=== PATIENT | male | born 1960 | race American Indian/Alaskan Native ===

== ENCOUNTER 2021-06-13 10:33 | Outpatient (CLI) | payer OTHER ==
--- NOTE | 2021-06-13 13:10 | XRay Report ---
LUMBOSACRAL SPINE 3 VIEWS INDICATION: BACK PAIN. COMPARISON: None. IMPRESSION: Normal alignment. 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 L5-S1 is the most affected disc joint. L4-5 is the most affected facet joints. No ac [place] osseous or soft tissue abnormality. THORACIC SPINE 3 VIEWS INDICATION: BACK PAIN. COMPARISON: None. IMPRESSION: Normal alignment. 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 No acute osseous or so ft tissue abnormality. CERVICAL SPINE 3 VIEWS INDICATION: BACK PAIN. COMPARISON: None. IMPRESSION: Normal alignment. 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 The facet joints are un remarkable. No acute osseous or soft tissue abnormality. LEFT SHOULDER 3 VIEWS INDICATION: Left shoulder pain. COMPARISON: None. IMPRESSION: No acute osseous or soft tissue abnormality. Mild osteoarthritic changes are identifi ed. RIGHT FOOT 2 VIEWS INDICATION: Right foot pain. COMPARISON: None. IMPRESSION: No acute osseous or soft tissue abnormality. A mild hallux valgus deformity is identi fied. Previous surgical changes involving the distal first metatarsal is identified probably represen ting previous bunionectomy. There is a moderate to large plantar spur. No significant degenerative ch anges are identified. Signer Name: Edi Cota Jr, MD Signed: 06/13/2021 1:05 PM Workstation Name: [id number]
--- NOTE | 2021-06-13 13:10 | XRay Report ---
LUMBOSACRAL SPINE 3 VIEWS INDICATION: BACK PAIN. COMPARISON: None. IMPRESSION: Normal alignment. 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 L5-S1 is the most affected disc joint. L4-5 is the most affected facet joints. No ac [place] osseous or soft tissue abnormality. THORACIC SPINE 3 VIEWS INDICATION: BACK PAIN. COMPARISON: None. IMPRESSION: Normal alignment. 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 No acute osseous or so ft tissue abnormality. CERVICAL SPINE 3 VIEWS INDICATION: BACK PAIN. COMPARISON: None. IMPRESSION: Normal alignment. 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 The facet joints are un remarkable. No acute osseous or soft tissue abnormality. LEFT SHOULDER 3 VIEWS INDICATION: Left shoulder pain. COMPARISON: None. IMPRESSION: No acute osseous or soft tissue abnormality. Mild osteoarthritic changes are identifi ed. RIGHT FOOT 2 VIEWS INDICATION: Right foot pain. COMPARISON: None. IMPRESSION: No acute osseous or soft tissue abnormality. A mild hallux valgus deformity is identi fied. Previous surgical changes involving the distal first metatarsal is identified probably represen ting previous bunionectomy. There is a moderate to large plantar spur. No significant degenerative ch anges are identified. Signer Name: Edi Cota Jr, MD Signed: 06/13/2021 1:05 PM Workstation Name: [id number]
--- NOTE | 2021-06-13 13:11 | XRay Report ---
LUMBOSACRAL SPINE 3 VIEWS INDICATION: BACK PAIN. COMPARISON: None. IMPRESSION: Normal alignment. 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 L5-S1 is the most affected disc joint. L4-5 is the most affected facet joints. No ac [place] osseous or soft tissue abnormality. THORACIC SPINE 3 VIEWS INDICATION: BACK PAIN. COMPARISON: None. IMPRESSION: Normal alignment. 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 No acute osseous or so ft tissue abnormality. CERVICAL SPINE 3 VIEWS INDICATION: BACK PAIN. COMPARISON: None. IMPRESSION: Normal alignment. 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 The facet joints are un remarkable. No acute osseous or soft tissue abnormality. LEFT SHOULDER 3 VIEWS INDICATION: Left shoulder pain. COMPARISON: None. IMPRESSION: No acute osseous or soft tissue abnormality. Mild osteoarthritic changes are identifi ed. RIGHT FOOT 2 VIEWS INDICATION: Right foot pain. COMPARISON: None. IMPRESSION: No acute osseous or soft tissue abnormality. A mild hallux valgus deformity is identi fied. Previous surgical changes involving the distal first metatarsal is identified probably represen ting previous bunionectomy. There is a moderate to large plantar spur. No significant degenerative ch anges are identified. Signer Name: Edi Cota Jr, MD Signed: 06/13/2021 1:05 PM Workstation Name: [id number]
--- NOTE | 2021-06-13 13:11 | XRay Report ---
LUMBOSACRAL SPINE 3 VIEWS INDICATION: BACK PAIN. COMPARISON: None. IMPRESSION: Normal alignment. 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 L5-S1 is the most affected disc joint. L4-5 is the most affected facet joints. No ac [place] osseous or soft tissue abnormality. THORACIC SPINE 3 VIEWS INDICATION: BACK PAIN. COMPARISON: None. IMPRESSION: Normal alignment. 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 No acute osseous or so ft tissue abnormality. CERVICAL SPINE 3 VIEWS INDICATION: BACK PAIN. COMPARISON: None. IMPRESSION: Normal alignment. 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 The facet joints are un remarkable. No acute osseous or soft tissue abnormality. LEFT SHOULDER 3 VIEWS INDICATION: Left shoulder pain. COMPARISON: None. IMPRESSION: No acute osseous or soft tissue abnormality. Mild osteoarthritic changes are identifi ed. RIGHT FOOT 2 VIEWS INDICATION: Right foot pain. COMPARISON: None. IMPRESSION: No acute osseous or soft tissue abnormality. A mild hallux valgus deformity is identi fied. Previous surgical changes involving the distal first metatarsal is identified probably represen ting previous bunionectomy. There is a moderate to large plantar spur. No significant degenerative ch anges are identified. Signer Name: Edi Cota Jr, MD Signed: 06/13/2021 1:05 PM Workstation Name: [id number]
--- NOTE | 2021-06-13 13:11 | XRay Report ---
LUMBOSACRAL SPINE 3 VIEWS INDICATION: BACK PAIN. COMPARISON: None. IMPRESSION: Normal alignment. 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 L5-S1 is the most affected disc joint. L4-5 is the most affected facet joints. No ac [place] osseous or soft tissue abnormality. THORACIC SPINE 3 VIEWS INDICATION: BACK PAIN. COMPARISON: None. IMPRESSION: Normal alignment. 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 No acute osseous or so ft tissue abnormality. CERVICAL SPINE 3 VIEWS INDICATION: BACK PAIN. COMPARISON: None. IMPRESSION: Normal alignment. 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 The facet joints are un remarkable. No acute osseous or soft tissue abnormality. LEFT SHOULDER 3 VIEWS INDICATION: Left shoulder pain. COMPARISON: None. IMPRESSION: No acute osseous or soft tissue abnormality. Mild osteoarthritic changes are identifi ed. RIGHT FOOT 2 VIEWS INDICATION: Right foot pain. COMPARISON: None. IMPRESSION: No acute osseous or soft tissue abnormality. A mild hallux valgus deformity is identi fied. Previous surgical changes involving the distal first metatarsal is identified probably represen ting previous bunionectomy. There is a moderate to large plantar spur. No significant degenerative ch anges are identified. Signer Name: Edi Cota Jr, MD Signed: 06/13/2021 1:05 PM Workstation Name: [id number]
== END 2021-06-13 10:34 | disposition home or self-care (01) ==
LOC: XRAY 10:33
PROVIDERS: ATTEND Internal Medicine
DX: M47.814 Spondylosis without myelopathy or radiculopathy, thoracic region (principal); M47.812 Spondylosis without myelopathy or radiculopathy, cervical region; M19.012 Primary osteoarthritis, left shoulder; M19.071 Primary osteoarthritis, right ankle and foot; M77.31 Calcaneal spur, right foot
CPT/HCPCS: 72040; 72070; 72100